=== PATIENT | male | born 1995 | race Two or more races ===

== ENCOUNTER → 2020-12-21 | Outpatient (CLI) | payer OTHER ==
[~2020-12-21] MED LIST: ASCO500T8 PO; BIOT25005 PO; CHOL20009 PO; OMEG1CAP23 PO; VITA1TAB19 PO; ZINC50CA PO; vitamin e PO
== END | disposition home or self-care (01) ==
LOC: STAR 15:09
PROVIDERS: ATTEND Otolaryngology
DX: Z20.822 Contact with and (suspected) exposure to COVID-19 (principal); J34.2 Deviated nasal septum; J34.3 Hypertrophy of nasal turbinates
CPT/HCPCS: U0003; U0005

== ENCOUNTER 2020-12-27 07:09 | Day surgery (SDC) | payer OTHER ==
[~2020-12-27] VITALS: Ht 182.9 cm; Wt 95.4 kg
[2020-12-27] MEDS ORDERED: LIDOCAINE-MPF 1%, 2ML ONE (07:41)
[2020-12-27] MEDS ORDERED: CHLORHEXIDINE 15 ML UDC ONE (07:41)
[2020-12-27] MEDS ORDERED: LACTATED RINGERS 1,000 ML IV SCH (08:00)
[2020-12-27] MEDS ORDERED: LIDOCAINE-MPF 1%, 2ML INFIL ONE (08:00)
[2020-12-27] MEDS ORDERED: CHLORHEXIDINE 15 ML UDC PO ONE (08:00)
[2020-12-27] MEDS ORDERED: MUPIROCIN OINT 2%, 22GM ONE (08:50)
[2020-12-27] MEDS ORDERED: LIDOCAINE/PF 1%, 30ML ONE (08:50)
[2020-12-27] MEDS ORDERED: OXYMETAZOLINE NASAL SPRAY 0.05%,30ML ONE (08:50)
[2020-12-27] MEDS ORDERED: MIDAZOLAM 1 MG/ML, 2ML ONE (08:53)
[2020-12-27] MEDS ORDERED: FENTANYL PF 100 MCG/2ML ONE (08:53)
[2020-12-27] MEDS ORDERED: PROPOFOL 10 MG/ML, 20ML ONE (09:10)
[2020-12-27] MEDS ORDERED: SUCCINYLCHOLINE 20 MG/ML, 10ML ONE (09:10)
[2020-12-27] MEDS ORDERED: ROCURONIUM 10 MG/ML,10ML ONE (09:10)
[2020-12-27] MEDS ORDERED: EPHEDRINE 50 MG/ML, 1ML ONE (09:10)
[2020-12-27] MEDS ORDERED: ONDANSETRON 2MG/ML, 2ML ONE (09:10)
[2020-12-27] MEDS ORDERED: CEFAZOLIN 1,000 MG ONE (09:10)
[2020-12-27] MEDS ORDERED: DEXAMETHASONE 4 MG/ML, 1ML ONE (09:10)
[2020-12-27] MEDS ORDERED: EPINEPHRINE 1 MG/ML, 1ML INFIL ONE (09:45)
[2020-12-27] MEDS ORDERED: MEPERIDINE/PF 25MG/0.5ML IVPush PRN (10:30)
[2020-12-27] MEDS ORDERED: HYDROmorphone 1 MG/ML, 1ML INJ IVPush PRN (10:30)
[2020-12-27] MEDS ORDERED: HYDROcodone/APAP 7.5-325MG/15ML UDC PO PRN (10:30)
[2020-12-27] MEDS ORDERED: ONDANSETRON 2MG/ML, 2ML IVPush PRN (10:30)
[2020-12-27] MEDS ORDERED: ACETAMINOPHEN 325 MG TABLET PO PRN (10:30)
[2020-12-27] MEDS ORDERED: FENTANYL PF 100 MCG/2ML IV PRN (10:30)
[2020-12-27] MEDS ORDERED: OXYcodone 5 MG/5 ML ORAL.SOL UDC PO PRN (10:30)
[2020-12-27] MEDS ORDERED: PROMETHAZINE 25 MG/ML, 1ML IVPush PRN (10:30)
== END 2020-12-27 12:00 | disposition home or self-care (01) ==
LOC: OUT 07:09
PROVIDERS: ATTEND Otolaryngology
DX: J34.2 Deviated nasal septum (principal); J34.3 Hypertrophy of nasal turbinates
CPT/HCPCS: 30140; 30520; 88304; 88311; J0171; J0330; J0690; J1100; J2250; J2405; J2704; J3010; J7120